=== PATIENT | male | born 1990 | race African-American/Black ===

== ENCOUNTER 2019-09-24 13:52 | Emergency (ER) | payer BC, SELFPAY ==
--- NOTE | 2019-09-24 14:12 | EDPHYS ---
Physician Documentation [facility] Name: Abdelrahman Reyes Age: 29 yrs Sex: Male : 1990 Arrival Date: 09/24/2019 Time: 13:56 Bed 12 Private MD: ED Physician Adui Shi HPI: 09/24 14:18 This 29 yrs old Black Male presents to ER via Ambulatory with complaints of Work note. kb 14:18 Pt reports he had some pain in his knee after playing basketball a few weeks ago. Had kb just been taking it easy at home since then. He tried to return to work and they told him he needed some paperwork filled out clearing him to go back. Came to ER today to have forms filled out. Denies any pain, symptoms or complaints. . The patient has not experienced similar symptoms in the past. The patient has not recently seen a physician. Historical: - Allergies: 14:00 No Known Allergies; sv - PMHx: 14:00 None; sv - Immunization history:: Adult Immunizations up to date. - Social history:: Smoking status: Patient/guardian denies using tobacco. - Ebola Screening: : No symptoms or risks identified at this time. ROS: 14:18 Constitutional: Negative for fever, chills, and weight loss, Cardiovascular: Negative kb for chest pain, palpitations, and edema, Respiratory: Negative for shortness of breath, cough, wheezing, and pleuritic chest pain, Abdomen/GI: Negative for abdominal pain, nausea, vomiting, diarrhea, and constipation, Back: Negative for injury and pain, MS/Extremity: Negative for injury and deformity, Skin: Negative for injury, rash, and discoloration, Neuro: Negative for headache, weakness, numbness, tingling, and seizure. Exam: 14:18 Constitutional: This is a well developed, well nourished patient who is awake, alert, kb and in no acute distress. Head/Face: Normocephalic, atraumatic. Chest/axilla: Normal chest wall appearance and motion. Nontender with no deformity. No lesions are appreciated. Cardiovascular: Regular rate and rhythm with a normal S1 and S2. No gallops, murmurs, or rubs. Normal PMI, no JVD. No pulse deficits. Respiratory: Lungs have equal breath sounds bilaterally, clear to auscultation and percussion. No rales, rhonchi or wheezes noted. No increased work of breathing, no retractions or nasal flaring. Abdomen/GI: Soft, non-tender, with normal bowel sounds. No distension or tympany. No guarding or rebound. No evidence of tenderness throughout. Back: No spinal tenderness. No costovertebral tenderness. Full range of motion. Skin: Warm, dry with normal turgor. Normal color with no rashes, no lesions, and no evidence of cellulitis. MS/ Extremity: Pulses equal, no cyanosis. Neurovascular intact. Full, normal range of motion. Neuro: Awake and alert, GCS 15, oriented to person, place, time, and situation. Cranial nerves II-XII grossly intact. Motor strength 5/5 in all extremities. Sensory grossly intact. Cerebellar exam normal. Normal gait. Vital Signs: 14:00 BP 134 / 89; Pulse 85; Resp 16; Temp 98.3(TE); Pulse Ox 99% ; Weight 76.2 kg; Height 5 sv ft. 10 in. (177.80 cm); 14:00 Body Mass Index 24.10 (76.20 kg, 177.80 cm) sv MDM: 14:03 Patient medically screened. kb 14:17 Data reviewed: vital signs, nurses notes. Data interpreted: Pulse oximetry: on room air kb is 99 %. Interpretation: normal. Counseling: I had a detailed discussion with the patient and/or guardian regarding: the historical points, exam findings, and any diagnostic results supporting the discharge/admit diagnosis, the need for outpatient follow up, a family practitioner, to return to the emergency department if symptoms worsen or persist or if there are any questions or concerns that arise at home. Administered Medications: No medications were administered Disposition: 14:17 Encounter for work physical, Knee pain - resolved. kb 15:11 Co-signature as Attending Physician, Audi Shi MD I agree with the assessment and kdr plan of care. Disposition: 09/24/19 14:11 Discharged to Home. Impression: Encounter for screening, unspecified. - Condition is Stable. - Work release form, Medication Reconciliation Form, Thank You Letter, Antibiotic Education, Prescription Opioid Use form. - Follow up: Emergency Department; When: As needed; Reason: Worsening of condition. Follow up: Private Physician; When: 2 - 3 days; Reason: Recheck today's complaints, Continuance of care, Re-evaluation by your physician. Signatures: Michelle Gomez FNP-C FNP-Juana Bhakta, RN RN sv Audi Shi MD MD kdr Lucía Rivers RN RN iw Corrections: (The following items were deleted from the chart) 14:39 14:11 09/24/2019 14:11 Discharged to Home. Impression: Encounter for screening, iw unspecified. Condition is Stable. Forms are Medication Reconciliation Form, Thank You Letter, Antibiotic Education, Prescription Opioid Use. Follow up: Emergency Department; When: As needed; Reason: Worsening of condition. Follow up: Private Physician; When: 2 - 3 days; Reason: Recheck today's complaints, Continuance of care, Re-evaluation by your physician. kb
--- NOTE | 2019-09-24 14:12 | ER ---
Nurse's Notes [facility] Name: Abdelrahman Reyes Age: 29 yrs Sex: Male : 1990 Arrival Date: 09/24/2019 Time: 13:56 Bed 12 Private MD: Diagnosis: Encounter for screening, unspecified Presentation: 09/24 13:59 Presenting complaint: Patient states: needs work note for work because a couple of sv weeks ago he hurt his right knee and his job requires a note to go back to work. Transition of care: patient was not received from another setting of care. Onset of symptoms was September 24, 2019. Risk Assessment: Do you want to hurt yourself or someone else? Patient reports no desire to harm self or others. Initial Sepsis Screen: Does the patient meet any 2 criteria? No. Patient's initial sepsis screen is negative. Does the patient have a suspected source of infection? No. Patient's initial sepsis screen is negative. Care prior to arrival: None. 13:59 Method Of Arrival: Ambulatory sv 13:59 Acuity: DIOR 5 sv Triage Assessment: 14:01 General: Appears in no apparent distress. comfortable, Behavior is calm, cooperative, sv appropriate for age. Pain: Denies pain. Neuro: Level of Consciousness is awake, alert, obeys commands, Gait is steady. Respiratory: Airway is patent Respiratory effort is even, unlabored, Respiratory pattern is regular, symmetrical. Derm: Skin is pink, warm \T\ dry. Historical: - Allergies: 14:00 No Known Allergies; sv - PMHx: 14:00 None; sv - Immunization history:: Adult Immunizations up to date. - Social history:: Smoking status: Patient/guardian denies using tobacco. - Ebola Screening: : No symptoms or risks identified at this time. Vital Signs: 14:00 BP 134 / 89; Pulse 85; Resp 16; Temp 98.3(TE); Pulse Ox 99% ; Weight 76.2 kg; Height 5 sv ft. 10 in. (177.80 cm); 14:00 Body Mass Index 24.10 (76.20 kg, 177.80 cm) sv ED Course: 13:56 Patient arrived in ED. mr 14:00 Triage completed. sv 14:00 [facility]C [facility]. kb 14:00 Audi Shi MD is Attending Physician. kb 14:01 Arm band placed on. sv Administered Medications: No medications were administered Outcome: 14:11 Discharge ordered by . kb 14:39 Patient left the ED. iw Signatures: Michelle Gomez, DEVAN-C TRAFFIC CONTROL SPECIALIST-Juana Bhakta RN RN sv Theresa Bhandari Lucía Rivers RN RN iw Corrections: (The following items were deleted from the chart) 14:02 14:00 Pulse 85bpm; Resp 16bpm; Pulse Ox 99%; Temp 98.3F Temporal; 76.2 kg; Height 5 ft. sv 10 in.; BMI: 24.1; sv
[2019-09-24 14:44] VITALS: BP 134/89; TEMP 98.3; O2SAT 99
== END 2019-09-24 14:39 | disposition home or self-care (01) ==
LOC: ER 13:52
DX: Z13.9 Encounter for screening, unspecified (principal)
CPT/HCPCS: 99281